=== PATIENT | male | born 1955 | race Caucasian/White ===

== ENCOUNTER 2017-04-22 05:32 | Inpatient (IN) | payer OTHER ==
--- NOTE | 2017-04-14 15:30 | HP ---
Date/Time of Note Date/Time of Note DATE: 04/14/17 TIME: 15:20 Assessment/Plan VTE Prophylaxis VTE Prophylaxis Intervention: SCD's Assessment/Plan Problems: (1) Pre-op evaluation Status: Acute Comment: At this time I find the patient to be an acceptable surgical candidate and concur with your plans proceed with surgery. He is relatively medically stable and appropriate for surgery. Using a modified Alvarado's risk classification he is at average or intermediate risk. My major concern is his asthma and I have given him a Breo inhaler for the run up to surgery to protect him. On-call to the OR he should receive a breathing treatment with Xopenex by hand-held nebulizer as precaution. Otherwise we should proceed using standard and appropriate anesthesia precautions. (2) Asthma Status: Chronic Comment: Like many asthmatics this patient underplays his symptoms. I placed him on a controller medication to protect him in the run of the surgery. 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 This will need to be done as an outpatient through his primary care physician and he has been counseled on this HPI/ROS Admit Date/Time Admit Date/Time April 22, 2017 Hx of Present Illness 62-year-old male being brought in electively for left hip arthroplasty by Dr. Mason Faith. He has failed all prior conservative attempts at treatment. ROS Constitutional: no complaints Eyes: no complaints ENT: no complaints Respiratory: no complaints (Please note positive nocturnal awakening) Cardiovascular: no complaints Gastrointestinal: no complaints Genitourinary: no complaints Musculoskeletal: other (Left hip pain) Skin: no complaints Neurologic: no complaints Endocrine: no complaints Lymphatic: no complaints PMH/Family/Social Past Medical History 1) osteoarthritis, 2) asthma, 3) history of transitional cell carcinoma the bladder 2004, 4) usual childhood diseases, 5) history of varicella, 6) tobacco usage Medication; a) [place] as needed, B) Naprosyn as needed C) albuterol metered-dose inhaler that he uses once a week D) medical marijuana Past Surgical History Status post left hip labrum repair; status post right rotator cuff repair; status post left rotator cuff repair; status post left inguinal hernia repair; status post transurethral resection of bladder tumor; status post lumbar laminectomy; status post left hand digital reattachment post trauma Family History Significant Family History: cancer (State), hypertension, lung disease (Asthma) , other Social History Born in [facility] and raised here; high school education with a experience; previously worked construction now on disability 7 years; 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 lives with spouse and son and pet dog Alcohol Use: occasionally (Every 3 or day) Smoking Status: Current every day smoker Drug Use: marijuana Exam/Review of Systems Vital Signs Vitals Height 6 feet 4-1/2 inches; weight 207; blood pressure 122/68; pulse 80; temperature 99.1; respirations 18 Exam Constitutional: alert, oriented Psych: nl mood/affect, no complaints Head: atraumatic, normocephalic Eyes: EOMI, nl conjunctiva, nl lids, nl sclera ENMT: mucosa pink and moist, nl external ears & nose, nl lips & teeth, nl nasal mucosa & septum Neck: non-tender, supple Respiratory: clear to auscultation, normal air movement Cardiovascular: nl pulses, regular rate and rhythm Gastrointestinal: nl liver, spleen, non-tender, soft Musculoskeletal: nl extremities to inspection, nl gait and stance (Limited range of motion at the left hip) Extremities: normal pulses Neurological: 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
[2017-04-21 10:32] VITALS: BMI 25.0
[2017-04-22] VITALS (17 sets, daily range): BP systolic 120–156; BP diastolic 70–91; PULSE 79–99; RESP 15–20; Ht 195.6 cm; Wt 91.3 kg
[~2017-04-22] VITALS: Ht 195.6 cm; Wt 91.3 kg
[2017-04-22] MEDS ORDERED: TRAM100T2 PO (05:41)
[2017-04-22] MEDS ORDERED: ALBU18HF INHALATION (05:41)
[2017-04-22] MEDS ORDERED: BUPIVACAINE 0.5% (SDV) 30 ML, morphine SULFATE (PF) 8 MG, EPINEPHrine 0.3 MG, KETOROLAC... IRR SCH ×7 (06:00)
[2017-04-22] MEDS ORDERED: traMADol 50 MG TAB PO SCH (06:00)
[2017-04-22] MEDS ORDERED: GABAPENTIN 300 MG CAP PO SCH ×2 (06:00→21:00)
[2017-04-22] MEDS ORDERED: CEFAZOLIN 2 GM/50 ML (PMX) 50 ML IVPB SCH (06:00)
[2017-04-22] MEDS ORDERED: TRANEXAMIC ACID 1,000 MG in SOD CHLORIDE 0.9% 100 ML IVPB SCH (06:00)
[2017-04-22] MEDS ORDERED: SOD CHLORIDE 0.9% 100 ML, TRANEXAMIC ACID 3,000 MG IRR SCH ×2 (06:00)
[2017-04-22] MEDS ORDERED: DEXAMETHASONE 1 MG TAB PO SCH (06:00)
[2017-04-22] MEDS ORDERED: POLYMYXIN/BACITRACIN 1L IRRIG ONE (06:44)
[2017-04-22] MEDS ORDERED: PROPOFOL 20 ML ONE (06:46)
[2017-04-22] MEDS ORDERED: morphine SULFATE/PF (10 MG/10 ML) INJ ONE (06:46)
[2017-04-22] MEDS ORDERED: MIDAZOLAM 1 MG/ML 2 ML INJ ONE (06:47)
[2017-04-22] MEDS ORDERED: METOCLOPRAMIDE 10 MG INJ ONE (06:47)
--- NOTE | 2017-04-22 06:52 | HPN ---
Date/Time of Note Date/Time of Note DATE: 04/22/17 TIME: 06:52 Interval H&P Admission Note Pt. seen H&P reviewed: No system changes MARIA R GRIMM MD Apr 22, 2017 06:52
[2017-04-22] MEDS ORDERED: ONDANSETRON 4 MG INJ ONE (06:53)
[2017-04-22] MEDS ORDERED: CA CHLORIDE 10% 10 ML SYRINGE ONE (07:32)
[2017-04-22] MEDS ORDERED: THROMBIN 5000 UNIT VIAL ONE (07:32)
[2017-04-22] MEDS ORDERED: DIPHENHYDRAMINE 50 MG INJ IV PRN ×2 (08:00→08:30)
[2017-04-22] MEDS ORDERED: LABETALOL HCL 20MG INJ IV PRN (08:00)
[2017-04-22] MEDS ORDERED: MEPERIDINE 25 MG INJ IV PRN (08:00)
[2017-04-22] MEDS ORDERED: ONDANSETRON 4 MG INJ IV PRN ×2 (08:00→08:30)
[2017-04-22] MEDS ORDERED: METOCLOPRAMIDE 10 MG INJ IV PRN (08:00)
[2017-04-22] MEDS ORDERED: hydrALAzine 20 MG INJ IV PRN (08:00)
[2017-04-22] MEDS ORDERED: HYDROmorphONE (0.2 MG/ML) 10ML SYG IV PRN ×3 (08:00)
[2017-04-22] MEDS ORDERED: ALBUTEROL HFA 8 GM INHALER INH SCH (08:30)
[2017-04-22] MEDS ORDERED: BETHANECHOL 25 MG TAB PO PRN (08:30)
[2017-04-22] MEDS ORDERED: KETOROLAC 15 MG INJ IV PRN (08:30)
[2017-04-22] MEDS: LACTATED RINGER'S 1,000 ML IV SCH ×2 (08:30→20:40)
[2017-04-22] MEDS ORDERED: TRANEXAMIC ACID 1,000 MG in SOD CHLORIDE 0.9% 100 ML IV ONE (08:30)
[2017-04-22] MEDS ORDERED: OXYCODONE/ACETAMINOPHEN (5/325) TAB PO PRN (08:30)
[2017-04-22] MEDS ORDERED: morphine 4 MG/ML VIAL IV PRN (08:30)
[2017-04-22] MEDS ORDERED: ZOLPIDEM 5 MG TAB PO PRN (08:30)
[2017-04-22] MEDS ORDERED: ACETAMINOPHEN 500 MG TAB PO PRN (08:30)
[2017-04-22] MEDS ORDERED: morphine 2 MG INJ IV PRN (08:30)
[2017-04-22] MEDS ORDERED: MAGNESIUM HYDROXIDE 30ML CUP PO PRN (08:30)
--- NOTE | 2017-04-22 08:36 | OPR ---
Date/Time of Note Date/Time of Note DATE: 04/22/17 TIME: 08:32 Operative Report Procedure Date: Apr 22, 2017 Preoperative Diagnosis Hip arthritis, left Postoperative Diagnosis Left Hip arthritis following hip arthroscopy Operation Performed Left total hip arthroplasty following hip arthroscopy Surgeon see signature line Rope Walker: QUENTIN ROACH MD Anesthesia Type: general Estimated Blood Loss: 100 - 150 ml's Complications: no Pt Condition Post Procedure: stable Disposition: PACU Procedure Description UNDER BASTER SURGEON: Quentin Roach MD was asked to be present at my request as a result of the complexity associated with this procedure including positioning of the extremity, positioning of the instrumentation and protection of the neurovascular structures. In my opinion, the assistance offered by a surgical supply assistant is insufficient and Dr. Roach should be compensated for his time. PROCEDURE IN DETAIL: Following the administration of general endotracheal anesthesia supplemented with a spinal anesthetic, the patient was placed in the supine position. The bilateral lower extremities were then prepped and draped in the usual sterile fashion. A ceo na radiograph was obtained for preliminary limb length and femoral size as well as acetabular size. A lateral incision was then made exposing the tensor fascia the fascia was incised the tensor was retracted laterally and the vessels were cauterized. The anterior capsule was then identified and prepared. A capsulectomy was then performed and the femoral head was then evaluated. Severe arthritic changes were noted. A femoral head cut was then made in the appropriate degree of version and inclination. The acetabulum was then exposed and a capsulectomy and labrectomy were completed. The central portion was then entered and serially reamed up to the 55 mm size. A Depuy [place] cup which is 56 mm in size with a standard liner was then fit into position with solid fixation. A 40 mm screw was used for additional fixation. Attention was then directed to the femur, the femur was exposed and prepared. The canal was entered and serially reamed up to the 13] mm size. A 13 mm Depuy [place] stem was then inserted with solid fixation. A 1.5 standard femoral head , which was ceramic was then inserted. The leg was taken through full range of motion with no evident instability. In addition, radiographs revealed excellent position with reproduction of the limb lengths within a millimeter. The wound was irrigated thoroughly. The wound was then closed in layers and a Prenio for the final cover. This was watertight. Estimated blood loss was procedure was 200 cc. Postoperative radiographs will be obtained in the recovery room. MARIA R GRIMM MD Apr 22, 2017 08:36
[2017-04-22] MEDS: SENNA/DOCUSATE NA (8.6MG/50MG) TAB PO SCH ×2 (09:00→20:40)
--- NOTE | 2017-04-22 09:05 | RADRPT ---
PROCEDURE: Intraoperative imaging of the left hip with fluoroscopy. CLINICAL INDICATION: Left hip pain. Intraoperative. TECHNIQUE: 6 images of the left hip were obtained in the operating room with an image intensifier. No radiologist was in attendance. 0.3 minutes of fluoroscopy time was used. COMPARISON: No prior study is available for comparison. FINDINGS: Images demonstrate placement of a total left hip arthroplasty. IMPRESSION: 1. Satisfactory intraoperative imaging of the left hip. RPTAT: QQ .Jeremiah Haddad MD, MD Date Time Electronically viewed and signed by .Jeremiah Haddad MD, MD on 04/22/2017 09:04 .R/
[2017-04-22 09:19] LABS: BASOPHIL # 0.1 10^3/ul (0.0-0.1); BASOPHILS % 0.6 % (0.0-2.0); EOSINOPHILS # 0.2 10^3/ul (0.0-0.5); EOSINOPHILS % 1.4 % (0.0-7.0); HEMATOCRIT 48.9 % (42.0-52.0); HEMOGLOBIN 16.2 g/dl (14.0-18.0); LYMPHOCYTES # 1.5 10^3/ul (0.8-2.9); LYMPHOCYTES % 11.6 % (15.0-51.0); MEAN CORPUSCULAR HEMOGLOBIN 30.7 pg (29.0-33.0); MEAN CORPUSCULAR HGB CONC 33.1 g/dl (32.0-37.0); MEAN CORPUSCULAR VOLUME 92.8 fl (82.0-101.0); MEAN PLATELET VOLUME 11.2 fl (7.4-10.4); MONOCYTE # 0.4 10^3/ul (0.3-0.9); MONOCYTES % 2.7 % (0.0-11.0); NEUTROPHIL # 10.8 10^3/ul (1.6-7.5); NEUTROPHILS % 82.5 % (39.0-77.0); PLATELET COUNT 210 10^3/UL (140-415); RED BLOOD COUNT 5.27 10^6/ul (4.70-6.10); RED CELL DISTRIBUTION WIDTH 13.2 % (11.5-14.5); WHITE BLOOD COUNT 13.2 10^3/ul (4.8-10.8)
[2017-04-22] MEDS: CEFAZOLIN 1 GM/50 ML (PMX) 50 ML IVPB SCH ×2 (09:26→16:20)
--- NOTE | 2017-04-22 10:02 | RADRPT ---
PROCEDURE: XR Pelvis. CLINICAL INDICATION: Status post left hip replacement. TECHNIQUE: Single AP view of the pelvis. COMPARISON: No prior studies are available for comparison. FINDINGS: Left hip replacement is identified. The prosthetic components are in appropriate position and align ment. The osseous structures are intact. No destructive bony lesions are observed. Mild narrowing right hip joint is seen. Mild degenerative changes are seen in the lower lumbar spine. Barrett cathet er is identified over the lower pelvis. Soft tissue air over the left hip is procedural in nature. IMPRESSION: Left hip replacement. Prosthetic components are in appropriate position and alignment. Mild osteoarthritis of the right hip. Degenerative changes in the lower lumbar spine. RPTAT: AA .Niraj Houser MD, MD Date Time Electronically viewed and signed by .Niraj Houser MD, on 04/22/2017 10:01 .P/
[2017-04-22 10:21] LABS: HOLD TRANSMISSIONS 1
[2017-04-22] MEDS: DEXAMETHASONE 2 MG TAB PO SCH ×2 (12:39→18:03)
--- NOTE | 2017-04-22 15:39 | PDOCDIS ---
Discharge Instructions DIAGNOSIS Discharge Diagnosis HIp arthritis CONDITION Patient Condition: Good HOME CARE INSTRUCTIONS: Diet Instructions: Regular ACTIVITY: Activity Restrictions: Slowly Increase Activity Keep Limb Elevated Bathing Restrictions: Shower FOLLOW UP/APPOINTMENTS Follow-up Plan 2 weeks SCHOOL/WORK RELEASE May return to School/Work with: With Restrictions School/Work Release Comment: No hip extension for six weeks MARIA R GRIMM MD Apr 22, 2017 15:39
[2017-04-22] MEDS: OXYCODONE/ACETAMINOPHEN (5/325) TAB PO PRN ×2 (16:23→20:44)
[2017-04-22] MEDS: ALBUTEROL 18 GM INHALER INH SCH ×2 (16:24→20:40)
[2017-04-23] MEDS: CEFAZOLIN 1 GM/50 ML (PMX) 50 ML IVPB SCH (00:24)
[2017-04-23] MEDS: DEXAMETHASONE 2 MG TAB PO SCH ×2 (00:24→05:48)
[2017-04-23 00:53] VITALS: BP 128/77; RESP 20
[2017-04-23] MEDS: ALBUTEROL 18 GM INHALER INH SCH ×2 (01:00→05:48)
[2017-04-23 05:00] VITALS: BP 128/77; PULSE 77; RESP 18
[2017-04-23 05:17] LABS: ABNORMAL IP MESSAGE 1; BASOPHILS % 0.1 % (0.0-2.0); HEMATOCRIT 42.8 % (42.0-52.0); LYMPHOCYTES # 1.3 10^3/ul (0.8-2.9); MEAN CORPUSCULAR HGB CONC 32.7 g/dl (32.0-37.0); MEAN CORPUSCULAR VOLUME 91.8 fl (82.0-101.0); MEAN PLATELET VOLUME 11.5 fl (7.4-10.4); MONOCYTE # 1.5 10^3/ul (0.3-0.9); MONOCYTES % 6.9 % (0.0-11.0); NEUTROPHIL # 19.2 10^3/ul (1.6-7.5); NEUTROPHILS % 86.3 % (39.0-77.0); PLATELET COUNT 204 10^3/UL (140-415); POSITIVE DIFF @See below; RED BLOOD COUNT 4.66 10^6/ul (4.70-6.10); RED CELL DISTRIBUTION WIDTH 13.3 % (11.5-14.5); WHITE BLOOD COUNT 22.2 10^3/ul (4.8-10.8)
[2017-04-23] MEDS: LACTATED RINGER'S 1,000 ML IV SCH (05:48)
[2017-04-23] MEDS: OXYCODONE/ACETAMINOPHEN (5/325) TAB PO PRN ×2 (05:52→11:02)
--- NOTE | 2017-04-23 06:52 | DS ---
Date/Time of Note Date/Time of Note DATE: 04/23/17 TIME: 06:52 Discharge Summary Admission/Discharge Info Admit Date/Time Apr 22, 2017 at 05:32 Discharge Date/Time April 23, 2017 following clearance by physical therapy Discharge Diagnosis HIp arthritis Patient Condition: Good Procedures Left total hip replacement Hx of Present Illness 62-year-old male being brought in electively for left hip arthroplasty by Dr. Maria R Grimm. He has failed all prior conservative attempts at treatment. Hospital Course Patient was admitted and underwent an uncomplicated procedure. He was mobilized the next day discharge following clearance by physical therapy Home Meds Reported Medications Albuterol Sulfate* (Ventolin HFA*) 18 Gm Hfa.aer.ad, 2 PUFF INHALATION Q4H, #1 INHALER 04/22/17 Tramadol Hcl* (Tramadol* ER) 100 Mg Tab.er.24h, 100 MG PO DAILY, #30 TAB 04/22/17 Follow-up Plan 2 weeks Primary Care Provider Not On Staff Doctor Pending Labs Laboratory Tests Test 04/22/17 09:09 04/23/17 04:28 White Blood Count 13.210^3/ul (4.8-10.8) 22.210^3/ul (4.8-10.8) Red Blood Count 5.2710^6/ul (4.70-6.10) 4.6610^6/ul (4.70-6.10) Hemoglobin 16.2g/dl (14.0-18.0) 14.0g/dl (14.0-18.0) Hematocrit 48.9% (42.0-52.0) 42.8% (42.0-52.0) Mean Corpuscular Volume 92.8fl (82.0-101.0) 91.8fl (82.0-101.0) Mean Corpuscular Hemoglobin 30.7pg (29.0-33.0) 30.0pg (29.0-33.0) Mean Corpuscular Hemoglobin Concent 33.1g/dl (32.0-37.0) 32.7g/dl (32.0-37.0) Red Cell Distribution Width 13.2% (11.5-14.5) 13.3% (11.5-14.5) Platelet Count 82297^3/UL (140-415) 38204^3/UL (140-415) Mean Platelet Volume 11.2fl (7.4-10.4) 11.5fl (7.4-10.4) Neutrophils % 82.5% (39.0-77.0) 86.3% (39.0-77.0) Lymphocytes % 11.6% (15.0-51.0) 6.0% (15.0-51.0) Monocytes % 2.7% (0.0-11.0) 6.9% (0.0-11.0) Eosinophils % 1.4% (0.0-7.0) 0.0% (0.0-7.0) Basophils % 0.6% (0.0-2.0) 0.1% (0.0-2.0) Nucleated Red Blood Cells % 0.0/100WBC (0.0-0.0) 0.0/100WBC (0.0-0.0) Neutrophils # 10.810^3/ul (1.6-7.5) 19.210^3/ul (1.6-7.5) Lymphocytes # 1.510^3/ul (0.8-2.9) 1.310^3/ul (0.8-2.9) Monocytes # 0.410^3/ul (0.3-0.9) 1.510^3/ul (0.3-0.9) Eosinophils # 0.210^3/ul (0.0-0.5) 0.010^3/ul (0.0-0.5) Basophils # 0.110^3/ul (0.0-0.1) 0.010^3/ul (0.0-0.1) Nucleated Red Blood Cells # 0.010^3/ul (0.0-0.0) 0.010^3/ul (0.0-0.0) CBC Results Faxed/Phoned 1 MARIA R GRIMM MD Apr 23, 2017 06:52
--- NOTE | 2017-04-23 06:52 | PN ---
Date/Time of Note Date/Time of Note DATE: 04/23/17 TIME: 06:51 24 hour Interval Summary Patient is awake and alert with no pain. Physical Exam Physical examination: His wound is clean and dry. He is neurologically intact. There are no signs of DVT. Vital Signs Date Time Temp Pulse Resp B/P Pulse Ox O2 Delivery O2 Flow Rate FiO2 04/23/17 05:00 97.5 77 18 128/77 98 Room Air Intake and Output 04/22/17 04/22/17 04/23/17 15:00 23:00 07:00 Intake Total 1500 ml 2050 ml 1950 ml Output Total 1000 ml 1500 ml 2500 ml Balance 500 ml 550 ml -550 ml VTE Prophylaxis VTE Prophylaxis Intervention: anti-embolic stocking, SCD's Lines/Catheters IV Catheter Type: Saline Lock Barrett in Place: No Results Result Diagram: 04/23/17 0428 Results 24hrs Laboratory Tests Test 04/22/17 09:09 04/23/17 04:28 White Blood Count 13.2 H 22.2 #H Red Blood Count 5.27 4.66 L Hemoglobin 16.2 14.0 Hematocrit 48.9 42.8 Mean Corpuscular Volume 92.8 91.8 Mean Corpuscular Hemoglobin 30.7 30.0 Mean Corpuscular Hemoglobin Concent 33.1 32.7 Red Cell Distribution Width 13.2 13.3 Platelet Count 210 204 Mean Platelet Volume 11.2 H 11.5 H Neutrophils % 82.5 H 86.3 H Lymphocytes % 11.6 L 6.0 L Monocytes % 2.7 6.9 Eosinophils % 1.4 0.0 Basophils % 0.6 0.1 Nucleated Red Blood Cells % 0.0 0.0 Neutrophils # 10.8 H 19.2 H Lymphocytes # 1.5 1.3 Monocytes # 0.4 1.5 H Eosinophils # 0.2 0.0 Basophils # 0.1 0.0 Nucleated Red Blood Cells # 0.0 0.0 CBC Results Faxed/Phoned 1 *H Assessment/Plan Assessment/Plan Assessment: Status post total hip replacement Plan: He will begin physical therapy this morning. He will be cleared by physical therapy then be discharged. Medications Medications Home Meds Reported Medications Albuterol Sulfate* (Ventolin HFA*) 18 Gm Hfa.aer.ad, 2 PUFF INHALATION Q4H, #1 INHALER 04/22/17 Tramadol Hcl* (Tramadol* ER) 100 Mg Tab.er.24h, 100 MG PO DAILY, #30 TAB 04/22/17 MARIA R GRIMM MD Apr 23, 2017 06:52
[2017-04-23] MEDS ORDERED: ASPIRIN 81 MG TAB PO SCH (09:00)
[2017-04-23] MEDS: SENNA/DOCUSATE NA (8.6MG/50MG) TAB PO SCH (09:13)
--- NOTE | 2017-04-23 13:03 | PN ---
Date/Time of Note Date/Time of Note DATE: 04/23/17 TIME: 13:02 Assessment/Plan VTE Prophylaxis VTE Prophylaxis Intervention: ambulation Lines/Catheters IV Catheter Type (from Nrsg): Saline Lock Urinary Cath still in place: No Subjective 24 Hr Interval Summary Free Text/Dictation Anethesia note: A 62 year old male s/p left hip arthroplasty under Ga, spinal, pod #1 is doing well. pain is controlled. no itching, headache, back pain or nack inflammation, or n/v. care per surgery team Exam/Review of Systems Vital Signs Vitals Vital Signs Date Time Temp Pulse Resp B/P Pulse Ox O2 Delivery O2 Flow Rate FiO2 04/23/17 05:00 97.5 77 18 128/77 98 Room Air Intake and Output 04/22/17 04/22/17 04/23/17 15:00 23:00 07:00 Intake Total 1500 ml 2050 ml 1950 ml Output Total 1000 ml 1500 ml 2500 ml Balance 500 ml 550 ml -550 ml Results Result Diagram: 04/23/17 0428 Results 24 hrs Laboratory Tests Test 04/23/17 04:28 White Blood Count 22.2 #H Red Blood Count 4.66 L Hemoglobin 14.0 Hematocrit 42.8 Mean Corpuscular Volume 91.8 Mean Corpuscular Hemoglobin 30.0 Mean Corpuscular Hemoglobin Concent 32.7 Red Cell Distribution Width 13.3 Platelet Count 204 Mean Platelet Volume 11.5 H Neutrophils % 86.3 H Lymphocytes % 6.0 L Monocytes % 6.9 Eosinophils % 0.0 Basophils % 0.1 Nucleated Red Blood Cells % 0.0 Neutrophils # 19.2 H Lymphocytes # 1.3 Monocytes # 1.5 H Eosinophils # 0.0 Basophils # 0.0 Nucleated Red Blood Cells # 0.0 Medications Medications Current Medications Senna/Docusate Sodium (Senokot-S) 1 tab BID PO Last administered on 04/23/17t 09:13; Admin Dose 1 TAB; Start 04/22/17 at 09:00 Simethicone (Mylicon) 80 mg TID PRN PO DISTENSION/GAS/BLOATING; Start 04/22/17 at 08:30 Magnesium Hydroxide (Milk Of Mag) 30 ml BID PRN PO CONSTIPATION; Start at 08:30 Acetaminophen (Tylenol Tab) 1,000 mg Q4H PRN PO TEMP GREATER THAN 100.4F; Start 04/22/17 at 08:30 Gabapentin (Neurontin) 300 mg HS PO Last administered on 04/22/17 20:40; Admin Dose 300 MG; Start 04/22/17 at 21:00 Oxycodone/ Acetaminophen (Percocet (5/ 325)) 1 tab Q4H PRN PO PAIN LEVEL 1-5; Start 04/22/17 at 08:30 Oxycodone/ Acetaminophen (Percocet (5/ 325)) 2 tab Q4H PRN PO PAIN LEVEL 6-10 Last administered on 04/23/17 11:02; Admin Dose 2 TAB; Start 04/22/17 at 08:30 Morphine Sulfate (morphine) 2 mg Q2H PRN IV PAIN LEVEL 1-5; Start 04/22/17 at 08:30 Morphine Sulfate (morphine) 4 mg Q4H PRN IV PAIN LEVEL 6-10; Start 04/22/17 at 08:30 Ketorolac Tromethamine (Toradol) 15 mg Q6H PRN IV PAIN; Start 04/22/17 at 08:30 ; Stop 04/25/17 at 08:29 Ondansetron HCl (Zofran Inj) 4 mg Q6H PRN IV NAUSEA AND/OR VOMITING; Start at 08:30 Diphenhydramine HCl (Benadryl) 25 mg Q6H PRN IV PRURITUS; Start 04/22/17 at 08: 30 Aspirin 81 mg 81 mg DAILY PO Last administered on 04/23/17 09:13; Admin Dose 81 MG; Start 04/23/17 at 09:00 Lactated Ringer's (Lr) 1,000 ml @ 100 mls/hr Q10H IV Last administered on 04/23 05:48; Admin Dose 100 MLS/HR; Start 04/22/17 at 08:30 HILL VELEZ MD Apr 23, 2017 13:03
== END 2017-04-23 14:13 | disposition home health service (06) | DRG 470 ==
LOC: REC 05:32 → MS1 10:07
PROVIDERS: ADMIT Orthopaedic Surgery; ATTEND Orthopaedic Surgery
PROC: 0SRB04A Replacement of Left Hip Joint with Ceramic on Polyethylene Synthetic Substitute, Uncemented, Open Approach (ICD-10-PCS; principal; 2017-04-22 07:00)
DX: M16.12 Unilateral primary osteoarthritis, left hip (principal); J45.30 Mild persistent asthma, uncomplicated; Z85.51 Personal history of malignant neoplasm of bladder
CPT/HCPCS: 72170; 73530; 85025; 86999; 87086; 97116; 97162; C1713; C1776; J0690; J2175; J2250; J2274; J2405; J2765; J7120